=== PATIENT | female | born 1955 | race Caucasian/White ===

== ENCOUNTER 2017-12-12 08:25 | Day surgery (SDC) | payer OTHER ==
[2017-12-12] MEDS ORDERED: PROPOFOL 20 ML (10:02)
== END 2017-12-12 11:28 | disposition home or self-care (01) ==
LOC: GIL 08:25
DX: K29.50 Unspecified chronic gastritis without bleeding (principal); K21.0 Gastro-esophageal reflux disease with esophagitis; K64.4 Residual hemorrhoidal skin tags; I10 Essential (primary) hypertension; E78.5 Hyperlipidemia, unspecified
CPT/HCPCS: 45378; 88305; 88312; 88313